=== PATIENT | male | born 1965 | race Caucasian/White ===

== ENCOUNTER → 2018-10-09 | Outpatient (CLI) | payer MEDICAID ==
--- NOTE | 2018-10-09 08:42 | MR ---
EXAMINATION TYPE: MR lumbar spine wo con DATE OF EXAM: 10/09/2018 6:38 AM COMPARISON: NONE HISTORY: Low Back Pain / Radiculopathy Multiplanar, MultiSpin echo imaging of the lumbar spine was performed. L1-L2: Normal disc appearance without desiccation. No herniation, protrusion or disc bulging. No ca nal stenosis is present. Foramina are patent bilaterally. L2-L3: Normal disc appearance without desiccation. No herniation, protrusion or disc bulging. No ca nal stenosis is present. Foramina are patent bilaterally. L3-L4: Mild disc desiccation noted. Circumferential disc bulge greatest posteriorly with mild effacem ent ventral thecal sac. No evidence for central stenosis. No disc herniation. Mild facet joint arthro kelsey. Degenerative endplate marrow change noted. L4-L5: Moderate disc desiccation. Subligamentous posterocentral disc herniation mildly effaces the ve ntral thecal sac. Left lateral recess stenosis noted. No central stenosis. Left foraminal encroachmen t. Facet joint arthropathy. Degenerative endplate marrow change noted. L5-S1: Severe disc desiccation. Posterocentral disc protrusion effaces the ventral thecal sac. Bilate ral lateral recess stenosis without central stenosis. Moderate right greater than left neural foramin al encroachment. Facet joint arthropathy. Lumbar segments are intact. No paraspinal masses are identified. Conus medullaris has a normal appe arance. Ventral spondylosis identified. IMPRESSION: 1. Degenerative disc disease as discussed. 2. Mild disc herniation at L4-5 left lateral recess stenosis and left foraminal encroachment. 3. Disc protrusion at L5-S1 with bilateral lateral recess stenosis and foraminal encroachment.
== END ==
LOC: RADMRIMAIN 06:08
PROVIDERS: ATTEND Physical Medicine & Rehabilitation
DX: M48.061 Spinal stenosis, lumbar region without neurogenic claudication (principal); M51.17 Intervertebral disc disorders with radiculopathy, lumbosacral region
CPT/HCPCS: 72148

== ENCOUNTER → 2019-12-30 | Outpatient (CLI) | payer BC ==
[2019-12-30 16:16] LABS: Appearance,Urine Clear (Clear); Bilirubin,Urine Negative (Negative); Blood,Urine Negative (Negative); Color,Urine Yellow; Glucose,Urine (UA) Negative (Negative); Ketones,Urine Negative (Negative); Leukocyte Esterase,Urine Negative (Negative); Nitrite,Urine Negative (Negative); Protein,Urine Negative (Negative); Specific Gravity,Urine 1.025 (1.001-1.035); Urobilinogen,Urine <2.0 mg/dL (<2.0)
== END | disposition home or self-care (01) ==
LOC: LABPAT 15:36
PROVIDERS: ATTEND Orthopaedic Surgery
DX: Z01.818 Encounter for other preprocedural examination (principal)
CPT/HCPCS: 81003; 87070

== ENCOUNTER 2020-01-04 11:47 | Day surgery (SDC) | payer BC ==
[2020-01-03 10:14] VITALS: BMI 39.4
[~2020-01-04 11:47] MED LIST: ACETAMINOPHEN TAB 500 MG TAB PO ONE; DEXAMETHASONE SOD PHOSPHATE 10 MG/ML 1 ML VIAL IV ONE; GABAPENTIN 300 MG CAP PO ONE; HYDROmorphone 0.5 MG/0.5 ML SYRINGE IVP PRN; LIDOCAINE 1% (10MG/ML) FOR IV START INTRADERMA PRN; MELOXICAM 7.5 MG TAB PO ONE; MIDAZOLAM 2 MG/2 ML VIAL IV PRN; ONDANSETRON 4 MG/2 ML VIAL IVP ONE; ROPIVACAINE 246.25 MG, EPINEPHrine 0.5 MG, KETOROLAC 30 MG, cloNIDine HCL/PF 80 MCG, WA... MISCELLANE ONE; SCOPOLAMINE 1.5MG/72HR PATCH TRANSDERM ONE; TRANEXAMIC ACID 1,000 MG in SODIUM CHLORIDE 0.9% 100 ML IVPB ONE; ceFAZolin 3 GM in SODIUM CHLORIDE 0.9% 100 ML IVPB ONE
[2020-01-04] MEDS: LACTATED RINGERS 1,000 ML IV SCH ×3 (12:06→19:49)
[2020-01-04] MEDS ORDERED: fentaNYL (PF) 50 MCG/ML 2 ML AMP IV ONE (12:31)
[2020-01-04] MEDS ORDERED: SODIUM CHLORIDE 0.9% 100 ML BAG ONE (12:43)
[2020-01-04] MEDS ORDERED: TRANEXAMIC ACID 1,000 MG/10 ML VIAL ONE (12:43)
[2020-01-04] MEDS ORDERED: fentaNYL (PF) 50 MCG/ML 2 ML AMP ONE (12:43)
[2020-01-04] MEDS ORDERED: PROPOFOL 10 MG/ML 20 ML VIAL IV ONE (12:43)
[2020-01-04] MEDS ORDERED: HYDROmorphone (PF) 1 MG/ML ONE (12:43)
[2020-01-04] MEDS ORDERED: diphenhydrAMINE 50 MG/ML 1 ML VIAL ONE (12:43)
[2020-01-04] MEDS ORDERED: MIDAZOLAM 2 MG/2 ML VIAL ONE (12:43)
[2020-01-04] MEDS ORDERED: ceFAZolin 3,000 MG in SODIUM CHLORIDE 0.9% IRRIGATIO 3,000 ML IRRIGATION ONE (12:46)
[2020-01-04] MEDS ORDERED: ROPIVACAINE 0.2%-NS ON-Q PUMP 1,090 MG, EMPTY PAIN BALL 1 EACH MISCELLANE PRN (13:11)
--- NOTE | 2020-01-04 13:11 | P.ANPRN ---
Procedure Note - Anesthesia - Nerve Block Performed Left Adductor Canal Infusion Time Out Performed: Yes (1230) Date of Procedure: 01/04/20 Procedure Start Time: 12:31 Procedure Stop Time: 12:39 Location of Patient: PreOp Indication: Acute Post-Operative Pain, Requested by Surgeon Specifically requested for management of pain by DrMartine: Jaden Herron Sedation Type: Sedate with meaningful contact maintained Preparation: Sterile Prep Position: Supine Catheter Depth at Skin (cm): 8 Catheter: Indwelling Needle Types: Pajunk Needle Gauge: 20 Ultrasound used to visualize needle placement: Yes Ultrasound used to observe medication spread: Yes Injectate: 0.5% Ropivacaine (see comment for volume) (20cc) Blood Aspirated: No Pain Paresthesia on Injection Noted: No Resistance on Injection: Normal Image Stored and Saved: Yes Events: Uneventful and Well Tolerated
[2020-01-04] MEDS ORDERED: LACTATED RINGERS 1,000 ML IV ONE (13:45)
--- NOTE | 2020-01-04 14:12 | P.OP ---
Date of Procedure: 01/04/20 Preoperative Diagnosis: Severe osteoarthritis left knee Postoperative Diagnosis: Severe osteoarthritis left knee Procedure(s) Performed: Left total knee arthroplasty using Visionaire patient specific guides Implants: Sellers and Nephew Cruciate Retaining Journey II CR Oxinium Femoral Component size 6, left Sellers [employer] Nephew Journey Nonporous Tibial Baseplate size 5, left Sellers [employer] Nephew Journey II CR, XLPE Articular Insert, 9 mm, size 5-6 Sellers [employer] Nephew Joann II Resurfacing Patellar Component, Oval, 35 mm All components were cemented using Palacose R bone cement. Visionaire patient specific guides The articulation is Oxinium on polyethylene. Anesthesia: spinal Surgeon: Jaden Herron Masonry Teacher #1: Wilma Arizmendi Estimated Blood Loss (ml): 50 Pathology: other (Bone and cartilage) Condition: stable Disposition: PACU Indications for Procedure: After failure of conservative treatment we discussed the surgical and nonsurgical treatment options at length. Patient wishes to proceed with a total knee arthroplasty. Complications specific to this procedure were discussed at length, including but not limited to infection, bleeding, stiffness, and nerve injury. Patient is aware of all these complications and informed consent was obtained Operative Findings: The operative findings are consistent with severe osteoarthritis of the left knee Description of Procedure: Patient was seen in the preoperative area consent was reviewed and operative site was marked with a skin marker. An adductor canal pain catheter was placed by anesthesia in the preoperative area. Patient was then brought to the operating room and given preoperative antibiotics intravenously. A spinal anesthetic was administered by the anesthesia department. A tourniquet was plac ed on the upper thigh and the lower extremity was prepped and draped in usual sterile fashion. A gram of transexamic acid was given. A universal timeout was then performed which confirmed the patient's name, surgical site, ALLERGIES, and consent. The lower extremity was then exsanguinated and tourniquet was inflated to 250 mmHg. A standard and anterior midline approach to the knee was performed. The skin and subcutaneous tissue was dissected down to the patellar tendon. A medial parapatellar arthrotomy was then performed. The knee was then extended, the patellar was everted, and the knee was again flexed. Anterior horns of both menisci were excised, and a release was performed to the posterior medial aspect of the knee. On gross visual inspection, there was complete loss of articular cartilage in the medial and patellofemoral joint spaces. There was also significant cartilage damage in the lateral compartment. There were multiple periarticular osteophytes. The patient specific guide was placed on the distal femur, and pinned in place. Using the patient specific guide, the distal femoral cut was performed. The cutting block was then removed and the cut was checked for flatness. The appropriate 5-in-1 cutting block was then pinned in place through the holes that were drilled through the patient specific guide. The anterior condyles were cut without notching. The posterior and chamfer cuts were performed while protecting the collateral ligaments. The cutting block was then removed. Attention was then directed to the tibia. The remaining ACL was removed with a Ronguer, and the tibia was then gently subluxed forward with a large bent knee retractor. Any remaining menisci was excised. The posterior lateral corner was cauterized in order to cauterize the lateral geniculate artery. The patient specific guide for the tibia was then placed and was held in place with pins. Pinholes were then placed for rotation of the tibial component as well. Proximal tibia was then cut and sized. Next trials were then placed with the appropriate-sized insert. The knee was able to fully extend and flex to 130 and was stable throughout all range of motion. The knee was then extended, patella everted. Patella was then measured, and then using an osteotomy guide, the patella was cut at the appropriate level. The patella was then measured and drilled and the patella trial was then placed. The knee was then taken through range of motion with the patella trial and the patella tracked normally. The knee was then extended patella trial was then removed and the patella was everted. Knee was then flexed and lug holes were drilled through the femoral trial and the femoral trial was then removed. The tibial was then exposed, and the tibial broach guide was then pinned in place after it was set for the appropriate rotation to allow for the most coverage without overhang. The tibia was then reamed and broached. The cut surfaces of bone were then irrigated with pulsatile lavage. The posterior structures were injected with the ropivacaine solution. The knee was also irrigated with Irrisept solution. The components were then opened, the cement was mixed, and the components were then cemented in place. The cement was allowed to harden with the knee in full extension. While the cement was hardening, the remaining soft tissues were then injected with a ropivacaine solution, which consisted of 246.25 mg of ropivacaine, 0.5 mg of epinephrine, 30 mg of Toradol, 80 g of clonidine, and 48.45 mL of sterile water, for a total of 100 mL of fluid injected. After the cemented hardened. The tourniquet was released, and hemostasis was obtained. A second gram of transexamic acid was given. The knee was again irrigated. The knee was again taken through range of motion and found to be stable throughout all range of motion of 0-130, and the patella tracked normally. The fascia was then closed with #2 strata fix suture. The subcutaneous tissue was closed with 3-0 Vicryl and 3-0 strata fix. Dermabond glue was used for the skin and placed with the knee in flexion. The patient was placed in a sterile silver dressing. Patient was then transferred to recovery room in stable condition. The assistant technician Wilma Arizmendi NP was required due the complexity surgery and the need for a skilled surgical forceps fabricator. She assisted in positioning, draping, retraction, and closure of the wound.
[2020-01-04] MEDS ORDERED: TEMAZEPAM 15 MG CAP PO PRN (14:48)
[2020-01-04] MEDS ORDERED: MAGNESIUM HYDROXIDE 2,400 MG/10 ML CUP PO PRN (14:48)
[2020-01-04] MEDS ORDERED: BISACODYL 10 MG SUPP RECTAL PRN (14:48)
[2020-01-04] MEDS ORDERED: ONDANSETRON 4 MG/2 ML VIAL IVP PRN (14:48)
[2020-01-04] MEDS ORDERED: HYDROmorphone 1 MG/ML 1 ML SYRINGE IVP PRN (14:48)
[2020-01-04] MEDS ORDERED: hydrOXYzine PAMOATE 25 MG CAP PO PRN (14:48)
[2020-01-04] MEDS ORDERED: HYDROmorphone 0.5 MG/0.5 ML SYRINGE IVP PRN ×2 (14:48)
[2020-01-04] MEDS ORDERED: HYDROcodone/APAP 5-325MG 1 EACH TAB PO PRN ×2 (14:48)
[2020-01-04] MEDS ORDERED: NA PHOS,M-B/NA PHOS,DI-BA 133 ML ENEMA RECTAL PRN (14:48)
[2020-01-04] MEDS ORDERED: NALOXONE 0.4 MG/ML 1 ML VIAL IV PRN (14:48)
--- NOTE | 2020-01-04 15:14 | XR ---
EXAMINATION TYPE: XR knee limited LT DATE OF EXAM: 01/04/2020 COMPARISON: None HISTORY: Post knee replacement TECHNIQUE: 2 view left knee FINDINGS: Tibial and femoral components of in place. No acute fractures are evident. Postsurgical reinaldo nges are within the soft tissues. IMPRESSION: 1. No acute fracture post left knee replacement
[2020-01-04] MEDS: PANTOPRAZOLE 40 MG TABLET PO SCH (19:39)
[2020-01-04] MEDS: ASPIRIN 325 MG TAB PO SCH (20:10)
[2020-01-04] MEDS: ceFAZolin 3 GM in SODIUM CHLORIDE 0.9% 100 ML IVPB SCH (20:10)
[2020-01-04] MEDS ORDERED: SENNOSIDES-DOCUSATE SODIUM 1 EACH TAB PO SCH (21:00)
--- NOTE | 2020-01-05 00:01 | CONS ---
CONSULTATION DATE OF SERVICE: 01/04/2020 REASON FOR CONSULTATION: Advice regarding DJD and other multiple medical issues, requested by Dr. Herron. HISTORY OF PRESENT ILLNESS: This 54-year-old gentleman with past medical history of DJD, history of hernia repair, history of LASIK eye surgery, being followed by Dr. Brown in the outpatient setting, underwent left total knee arthroplasty for severe DJD. The patient tolerated the procedure well. The patient is being closely monitored. There is no history of any chest pain, no history of palpitations, no history of headache, loss of consciousness, nausea, vomiting, diarrhea, fever, rigors or chills at this time. PAST MEDICAL HISTORY: History of DJD, history of hernia repair, LASIK eye surgery. MEDICATIONS: Naprosyn and ibuprofen p.r.n. ALLERGIES: NONE. FAMILY HISTORY: No history of heart disease or strokes in the family. SOCIAL HISTORY: No history of smoking. No history of alcohol intake. REVIEW OF SYSTEMS: ENT: No diminished hearing. No diminished vision. CARDIOVASCULAR SYSTEM: No angina, palpitations. RESPIRATORY SYSTEM: No cough, hemoptysis. GI: No nausea, vomiting. : No dysuria or retention. NERVOUS SYSTEM: No numbness, weakness. ALLERGY/IMMUNOLOGY: No asthma, hayfever. MUSCULOSKELETAL: As mentioned earlier. HEMATOLOGY/ONCOLOGY: No history of anemia. ENDOCRINE: No history of diabetes, hypothyroidism. CONSTITUTIONAL: As mentioned earlier. DERMATOLOGY: Negative. RHEUMATOLOGY: Negative. PSYCHIATRY: As mentioned earlier. PHYSICAL EXAMINATION: Patient is alert and oriented x3. Pulse 79, blood pressure 131/70, respiration 18, temperature 98.2, pulse ox 97% on 2 L. HEENT: Conjunctivae normal. NECK: No jugular venous distention. No carotid bruit. No lymph node enlargement. CARDIOVASCULAR SYSTEM: S1, S2 muffled. RESPIRATORY SYSTEM: Breath sounds diminished at the bases. No rhonchi. No crackles. ABDOMEN: Soft, obese, non-tender. No mass palpable. LEGS: Status post left total knee arthroplasty. NERVOUS SYSTEM: Higher functions as mentioned earlier. Moves all 4 limbs. No focal motor or sensory deficit. LYMPHATICS: No lymph node palpable in neck, axillae or groin. SKIN: No ulcer, rash, bleeding. JOINTS: As mentioned earlier. LABS: Previous UA in the computer negative. ASSESSMENT: 1. Status post left total knee joint arthroplasty. 2. History of degenerative joint disease. 3. History of hernia repair. 4. History of LASIK eye surgery. 5. Obesity with body mass index of 39.5. RECOMMENDATIONS AND DISCUSSION: In this 54-year-old gentleman admitted after surgery at this time I recommend to continue the current medications, continue with symptomatic treatment. DVT prophylaxis. Proton pump inhibitors and incentive spirometry. Will follow the patient closely with you. The patient may be asked to follow up with Dr. Brown closely in the outpatient setting. Thank you, Dr. Herron, for letting us participate in the care of this patient. MMODL / IJN: [id number] /
[2020-01-05] MEDS: LACTATED RINGERS 1,000 ML IV SCH ×2 (02:35→05:39)
[2020-01-05 02:53] VITALS: TEMP 97.6
[2020-01-05] MEDS ORDERED: ceFAZolin 3 GM in SODIUM CHLORIDE 0.9% 100 ML IVPB SCH (06:00)
[2020-01-05] MEDS: ceFAZolin 3 GM in SODIUM CHLORIDE 0.9% 100 ML IVPB SCH (06:19)
[2020-01-05 07:53] VITALS: BP 133/75; PULSE 71; RESP 18
[2020-01-05 08:03] LABS: Basophils % (A) 0 %; Eosinophils # (A) 0.1 k/uL (0-0.7); Eosinophils % (A) 1 %; HCT 38.9 % (39.0-53.0); HGB 13.2 gm/dL (13.0-17.5); Lymphocytes # (A) 1.8 k/uL (1.0-4.8); Lymphocytes % (A) 20 %; MCH 30.8 pg (25.0-35.0); MCHC 33.9 g/dL (31.0-37.0); MCV 90.9 fL (80.0-100.0); Mean Platelet Volume 7.8; Monocytes # (A) 0.5 k/uL (0-1.0); Monocytes % (A) 6 %; Neutrophils # (A) 6.5 k/uL (1.3-7.7); Neutrophils % (A) 72 %; Platelet Count 156 k/uL (150-450); RBC 4.29 m/uL (4.30-5.90); RDW 13.1 % (11.5-15.5)
--- NOTE | 2020-01-05 08:06 | P.DS ---
Providers Expected date of discharge: 01/05/20 Attending physician: Jaden Herron Consults: 01/04/20 14:48 Consult Physician Routine Consulting Provider: Jackie Moraes Consult Reason/Comments: medical management Do you want consulting provider notified?: Yes Primary care physician: Domenica Brown - Discharge Diagnosis(es) (1) Primary localized osteoarthritis of left knee Current Visit: Yes Status: Acute (2) Status post left knee replacement Current Visit: Yes Status: Acute Hospital Course: This is a pleasant 54-year-old male last seen in our office with complaints of left knee pain. Patient has known history of degenerative arthritis of the left knee and presented to discuss options. After discussion and consideration, the patient elected to proceed with a left total knee arthroplasty. Patient was seen preoperatively, and medically cleared for surgery by Dr. Brown. Patient was admitted to [facility] underwent left total knee arthroplasty on 01/04/[address] Jaden Herron. The procedure was performed without complications or sequelae. The patient is seen and evaluated at bedside today. Pain is well-controlled. Patient has no new complaints today and denies any fevers, chills, nausea, vomiting, or shortness of breath. Vital signs are stable. Dressing is clean dry and intact. Incision looks fine with no erythema or active drainage. Calf is soft and nontender. Patient has full foot and ankle motion without difficulty. Patient's left lower extremity is neurovascularly intact. The patient is orthopedically stable for discharge home today. Pertinent Studies: Laboratory Tests 01/05/20 06:53 WBC 9.0 RBC 4.29 L Hgb 13.2 Hct 38.9 L Patient Condition at Discharge: Stable Plan - Discharge Summary Discharge Rx Participant: No New Discharge Prescriptions: New Aspirin 325 mg PO BID #60 tab HYDROcodone/APAP 5-325MG [[place] 5] 1 - 2 each PO Q4-6H PRN #56 tab PRN Reason: Pain Sennosides-Docusate Sodium [Senokot-S] 2 tab PO DAILY #30 tablet No Action Naproxen Sodium [Aleve] 220 mg PO BID PRN PRN Reason: Pain Ibuprofen [Advil] 200 mg PO Q6HR PRN PRN Reason: Pain Discharge Medication List Ibuprofen [Advil] 200 mg PO Q6HR PRN 01/03/20 [History] Naproxen Sodium [Aleve] 220 mg PO BID PRN 01/03/20 [History] Aspirin 325 mg PO BID #60 tab 01/05/20 [Rx] HYDROcodone/APAP 5-325MG [[place] 5] 1 - 2 each PO Q4-6H PRN #56 tab 01/05/20 [Rx] Sennosides-Docusate Sodium [Senokot-S] 2 tab PO DAILY #30 tablet 01/05/20 [Rx] Follow up Appointment(s)/Referral(s): Domenica Brown III, MD [Primary Care Provider] - 1 Week Jaden Herron DO [Doctor of Osteopathic Medicine] - 01/19/20 2:00 pm Ambulatory/Diagnostic Orders: Continuous Passive Motion (CPM) Machine [DME.AMB1] Time Frame: 3 Weeks, Loc ation: None Selected Patient Instructions/Handouts: Knee Replacement (GEN) Activity/Diet/Wound Care/Special Instructions: Weightbearing as tolerated with walker Keep dressing in place for 10 days unless saturated Aspirin 325 mg twice a day May shower over dressing CPM Follow up with Dr. Jaden Herron in 2 weeks. Call [facility] with questions or concerns, Discharge Disposition: HOME SELF-CARE
[2020-01-05] MEDS: ASPIRIN 325 MG TAB PO SCH (09:40)
[2020-01-05] MEDS: PANTOPRAZOLE 40 MG TABLET PO SCH (09:40)
--- NOTE | 2020-01-05 11:05 | P.PN ---
Progress Note - Text Progress Note Date: 01/05/20 patient was seen today at 7 AM in the morning Postoperative day # 1 status post total knee arthroplasty, under spinal anesthesia, and adductor canal catheter placed for postoperative analgesia, currently at ropivacaine 0.2% 8 mL per hour and continuous infusion, visual analogue scale is 3/10, patient using oral pain medication for breakthrough pain. Assessment and plan= Acute postoperative pain, adductor canal catheter for pain control, pain is well controlled we'll continue the same management.
--- NOTE | 2020-01-05 14:37 | P.PN ---
Subjective Progress Note Date: 01/05/20 Principal diagnosis: This is a 54-year-old male who was recently admitted to Dr. Herron for left total knee arthroplasty and is being closely monitored. Patient has a history of degenerative joint disease. Patient is seen and evaluated in follow-up today and states he is being discharged today. Discussed with the patient about discharge planning and patient states he will be having outpatient physical therapy that will start this Friday. Discussed with the patient about following up with primary care provider Dr. Brown and patient stated that he has an annual physical that is scheduled for next week. Currently no reports of chest pain, shortness of breath, or palpitations. Patient is afebrile. No reports of nausea or vomiting and patient is tolerating diet. Patient states he had a bowel movement yesterday. Discussed with the patient about continuing to use incentive spirometer at least 10 times every hour while awake and patient states that he has been doing this. Will continue to follow along closely. Objective - Vital Signs Vital signs: Vital Signs Temp 97.6 F 01/05/20 07:00 Pulse 71 01/05/20 08:25 Resp 18 01/05/20 08:25 BP 133/75 01/05/20 07:00 Pulse Ox 96 01/05/20 07:00 Intake & Output 01/04/20 01/05/20 01/05/20 18:59 06:59 18:59 Intake Total 1501 480 Output Total 50 Balance 1451 480 Weight 124.738 kg Intake: IV 1501 Oral 480 Output: Estimated Blood Loss 50 Other: # Voids 1 - Exam Gen: This is a 54-year-old male sitting up in the chair him awake, alert and oriented 3, well-developed, well-nourished, obese. Temp is 97.6F, pulse is 71, respirations are 18, blood pressure is 133/75, oxygen saturation is 96% on room air. HEENT: Head is atraumatic, normocephalic. Pupils equal, round. Sclerae is anicteric. NECK: Supple. No JVD. No lymphadenopathy. No thyromegaly. LUNGS: Diminished breath sounds at the bases with no wheezing or rhonchi noted. No intercostal retractions. HEART: S1, S2 are muffled. ABDOMEN: Soft. Obese. Bowel sounds are present. No masses. No tenderness. EXTREMITIES: No pedal edema. No calf tenderness. Left knee surgical dressing is dry and intact NEUROLOGICAL: Patient is awake, alert and oriented x3. Cranial nerves 2 through 12 are grossly intact. - Labs CBC & Chem 7: 01/05/20 06:53 Labs: Abnormal Lab Results - Last 24 Hours (Table) 01/05/20 Range/Units 06:53 RBC 4.29 L (4.30-5.90) m/uL Hct 38.9 L (39.0-53.0) % Assessment and Plan Assessment: Status post left total knee joint arthroplasty History of degenerative joint disease history of hernia repair History of Lasix eye surgery Obesity with a body mass index of 39.5 Discussion and recommendations: Recommend to continue current medications and symptomatic treatment. Patient to continue using incentive spirometer in the outpatient setting. Discussed with the patient about increasing activity as tolerated and patient will be starting physical therapy in the outpatient setting this Friday. Further recommendations to follow. Plan is for discharge today to home.
== END 2020-01-05 11:50 | disposition home or self-care (01) ==
LOC: OR 11:47 → 4SSUR 14:44 → OR 01-05 11:50
PROVIDERS: ATTEND Orthopaedic Surgery
DX: M17.12 Unilateral primary osteoarthritis, left knee (principal); M25.762 Osteophyte, left knee; E78.2 Mixed hyperlipidemia; R73.09 Other abnormal glucose; E66.9 Obesity, unspecified; Z68.39 Body mass index [BMI] 39.0-39.9, adult; Z97.3 Presence of spectacles and contact lenses; Z98.890 Other specified postprocedural states; Z80.0 Family history of malignant neoplasm of digestive organs; Z82.49 Family history of ischemic heart disease and other diseases of the circulatory system
CPT/HCPCS: 27447; 97161; 64448; 76942; 85025; 88300; 73560; C1713; C1776; J2250; J0171; J1200; J1100; J0690 ×3; J2405; J3010; J1885; J1170; J2795 ×2; J2704; J0735

== ENCOUNTER 2020-11-29 07:56 | Day surgery (SDC) | payer BC ==
[2020-11-27 12:21] VITALS: BMI 40.1
[~2020-11-29 07:56] MED LIST changes: -ACETAMINOPHEN TAB 500 MG TAB PO ONE; -DEXAMETHASONE SOD PHOSPHATE 10 MG/ML 1 ML VIAL IV ONE; -GABAPENTIN 300 MG CAP PO ONE; -HYDROmorphone 0.5 MG/0.5 ML SYRINGE IVP PRN; +LACTATED RINGERS 1,000 ML IV SCH; -MELOXICAM 7.5 MG TAB PO ONE; -MIDAZOLAM 2 MG/2 ML VIAL IV PRN; -ONDANSETRON 4 MG/2 ML VIAL IVP ONE; -ROPIVACAINE 246.25 MG, EPINEPHrine 0.5 MG, KETOROLAC 30 MG, cloNIDine HCL/PF 80 MCG, WA... MISCELLANE ONE; -SCOPOLAMINE 1.5MG/72HR PATCH TRANSDERM ONE; -TRANEXAMIC ACID 1,000 MG in SODIUM CHLORIDE 0.9% 100 ML IVPB ONE; -ceFAZolin 3 GM in SODIUM CHLORIDE 0.9% 100 ML IVPB ONE
[2020-11-29 08:21] VITALS: RESP 16; TEMP 97.2
[2020-11-29] MEDS ORDERED: PROPOFOL 10 MG/ML 20 ML VIAL IV ONE (08:29)
[2020-11-29] MEDS ORDERED: MIDAZOLAM 2 MG/2 ML VIAL ONE (08:29)
[2020-11-29] MEDS ORDERED: fentaNYL (PF) 50 MCG/ML 2 ML AMP ONE (08:29)
--- NOTE | 2020-11-29 08:45 | P.PCN ---
Date of Procedure: 11/29/20 Procedure(s) Performed: BRIEF HISTORY: Patient is a 55-year-old pleasant male scheduled for an elective colonoscopy as a part of surveillance of prior history of colon polyps. Last colonoscopy was 5 years ago. PROCEDURE PERFORMED: Colonoscopy. PREOPERATIVE DIAGNOSIS: History of colon polyps. IV sedation per Anesthesia. PROCEDURE: After informed consent was obtained, the patient, was brought into the endoscopy unit. IV sedation was administered by Anesthesia under continuous monitoring. Digital rectal examination was normal. Initially the Olympus CF-160 flexible video colonoscope was then inserted in the rectum, gradually advanced into the cecum without any difficulty. Careful examination was performed as the scope was gradually being withdrawn. Ileocecal valve and the appendiceal orifice were visualized and appeared normal. Prep was excellent. Mucosa of the cecum, ascending colon, transverse colon, descending colon, sigmoid colon, and rectum appeared normal. Scattered sigmoid diverticulosis seen. Retroflexion was performed in the rectum and no lesions were seen. The patient tolerated the procedure well. IMPRESSION: Normal-appearing colon from rectum to cecum with no evidence of colorectal neoplasia . Scattered sigmoid diverticulosis. RECOMMENDATIONS: Findings of this examination were discussed with the patient as well as his family. He was advised to have a repeat surveillance colonoscopy in 5 years from now because of the prior history of colon polyps..
[2020-11-29 09:09] VITALS: BP 144/75; PULSE 80
== END 2020-11-29 09:17 | disposition home or self-care (01) ==
LOC: ORWHC2ENDO 07:56
PROVIDERS: ATTEND Internal Medicine Gastroenterology
DX: Z12.11 Encounter for screening for malignant neoplasm of colon (principal); K57.30 Diverticulosis of large intestine without perforation or abscess without bleeding; Z86.010 Personal history of colon polyps
CPT/HCPCS: J2250; J3010; J2704; G0105